=== PATIENT | female | born 1980 | race Caucasian/White ===

== ENCOUNTER 2019-11-08 02:54 | Inpatient (IN) | payer OTHER ==
[2019-11-08] MEDS ORDERED: ceFAZolin 2 GM in SODIUM CHLORIDE 0.9% 100ML 100 ML IV ONE (03:01)
[2019-11-08] MEDS ORDERED: miSOPROStoL 200 MCG TABLET BC PRN (03:01)
[2019-11-08] MEDS ORDERED: SODIUM CHLORIDE FLUSH 0.9% 10 ML SYRINGE IVP PRN (03:01)
[2019-11-08] MEDS ORDERED: TRANEXAMIC ACID 1,000 MG in SODIUM CHLORIDE 0.9% 100ML 100 ML IV PRN (03:01)
[2019-11-08] MEDS ORDERED: OXYTOCIN 10 UNIT/ML VIAL IM PRN (03:01)
[2019-11-08] MEDS ORDERED: OXYTOCIN/SODIUM CHLORIDE 500 ML IV PRN (03:01)
[2019-11-08] MEDS ORDERED: LIDOCAINE-MPF 1% 30 ML VIAL ID PRN (03:01)
[2019-11-08] MEDS ORDERED: CARBOPROST TROMETHAMINE 250 MCG/ML AMP IM PRN (03:01)
[2019-11-08] MEDS ORDERED: METHYLERGONOVINE 0.2 MG/ML VIAL IM PRN (03:01)
[2019-11-08] MEDS ORDERED: fentaNYL 100 MCG/2 ML VIAL IVP ONE (03:12)
[2019-11-08] MEDS ORDERED: ROCURONIUM 50 MG/5 ML VIAL IVP ONE (03:12)
[2019-11-08] MEDS ORDERED: PROPOFOL 200 MG/20 ML VIAL IVP ONE (03:12)
[2019-11-08] MEDS ORDERED: TRANEXAMIC ACID 1,000 MG/10 ML VIAL IV ONE (03:12)
[2019-11-08] MEDS ORDERED: OXYTOCIN 10 UNIT/ML VIAL IV ONE (03:12)
[2019-11-08] MEDS ORDERED: ONDANSETRON 4 MG/2 ML VIAL IVP ONE (03:12)
[2019-11-08] MEDS ORDERED: GLYCOPYRROLATE 1 MG/5 ML VIAL IVP ONE (03:12)
[2019-11-08] MEDS ORDERED: NEOSTIGMINE 1 MG/1 ML 10 ML MDV IVP ONE (03:12)
[2019-11-08 03:19] LABS: BASOPHILS % (AUTO) 0.3 %; EOSINOPHILS # (AUTO) 0.1 10^3/uL (0.0-0.7); EOSINOPHILS % (AUTO) 0.7 %; HGB - HEMOGLOBIN 11.3 g/dL (12.0-16.0); LYMPHOCYTES # (AUTO) 2.8 10^3/uL (1.5-3.5); LYMPHOCYTES % (AUTO) 22.9 %; MEAN CORPUSCULAR HGB CONC 32.8 g/dL (32.0-36.0); MEAN CORPUSCULAR VOLUME 91.2 fL (81.0-99.0); MEAN PLATELET VOLUME 10.1 fL (7.9-10.8); MONOCYTES # (AUTO) 0.8 10^3/uL (0.0-1.0); MONOCYTES % (AUTO) 6.4 %; NEUTROPHILS # (AUTO) 8.3 10^3/uL (1.5-6.6); NEUTROPHILS % (AUTO) 68.6 %; PLT - PLATELET COUNT 242 10^3/uL (130-450); RED BLOOD COUNT 3.77 10^6/uL (4.20-5.40); RED CELL DISTRIBUTION WIDTH 13.1 % (12.0-15.0); WHITE BLOOD COUNT 12.1 x10^3/uL (4.8-10.8)
[2019-11-08 03:32] LABS: ALBUMIN/GLOBULIN RATIO 0.9 (1.0-2.2); BILIRUBIN,TOTAL 0.8 mg/dL (0.2-1.0); CALCIUM 9.2 mg/dL (8.5-10.3); CREATININE 0.5 mg/dL (0.4-1.0); TOTAL PROTEIN 6.2 g/dL (6.7-8.2)
[2019-11-08] MEDS ORDERED: CARBOPROST TROMETHAMINE 250 MCG/ML AMP IM ONE ×2 (03:32→03:34)
[2019-11-08] MEDS ORDERED: CEFAZOLIN SODIUM IN 0.9 % NACL 2 GM/100 ML BAG IV ONE (03:50)
[2019-11-08] MEDS ORDERED: LACTATED RINGERS 1,000 ML IV SCH ×2 (04:00→05:00)
[2019-11-08] MEDS ORDERED: WITCH HAZEL/GLYCERIN 1 PAD TOP PRN (04:32)
[2019-11-08] MEDS ORDERED: ONDANSETRON 4 MG/2 ML VIAL IVP PRN ×2 (04:32→04:40)
[2019-11-08] MEDS ORDERED: HYDROCORTISONE 1% CREAM 28 GM TUBE PR PRN (04:32)
[2019-11-08] MEDS ORDERED: diphenhydrAMINE INJ 50 MG/ML VIAL IVP PRN (04:32)
--- NOTE | 2019-11-08 04:39 | OPERATIVE REPORT ---
Operative Report - General Planned Procedure: DOS 11/08/19 Preop: vag bleeding at term, prior x2 Postop: placental abruption Surg: repeat MD: Tima Assist: Curly EBL: 800cc + 100cc expressed UOP; 225 IVF: 1400 Comp: none Dispo: PACU, stable Specimens: placenta, cord blood
[2019-11-08] MEDS ORDERED: NALOXONE 0.4 MG/ML VIAL IVP PRN (04:40)
[2019-11-08] MEDS ORDERED: ATROPINE ABBOJECT 1 MG/10 ML SYRINGE IVP PRN (04:40)
[2019-11-08] MEDS ORDERED: ePHEDrine 50 MG/ML VIAL IVP PRN (04:40)
[2019-11-08] MEDS: HYDROmorphone 0.5 MG/0.5 ML SYRINGE ONE ×2 (04:40→04:58)
[2019-11-08] MEDS ORDERED: HYDROmorphone 0.5 MG/0.5 ML SYRINGE IVP PRN (04:40)
[2019-11-08] MEDS ORDERED: MORPHINE 2 MG/ML CARPUJECT IVP PRN ×2 (04:40→05:33)
[2019-11-08] MEDS ORDERED: fentaNYL 100 MCG/2 ML VIAL IVP PRN (04:40)
[2019-11-08] MEDS ORDERED: METOCLOPRAMIDE 10 MG/2 ML VIAL IVP PRN (04:40)
--- NOTE | 2019-11-08 04:44 | ANESTHESIA ---
Pre-Anesthesia VS, & Labs - Diagnosis @38, abruption - Procedure Emegency c/s Vital Signs: Temp Pulse Resp BP Pulse Ox 36.7 C 93 16 143/81 H 100 11/08/19 04:31 11/08/19 04:31 11/08/19 04:31 11/08/19 04:31 11/08/19 04:31 67", 90kg (estimates) - NPO Other Last Food Intake: 2100 - Is Patient ?: Yes, Waiver signed (crash c/s due to bleeding, FHT concerns) - Lab Results Current Lab Results: Laboratory Tests 11/08/19 03:10: Blood Type Recheck A POSITIVE 11/08/19 03:00: Sodium 134 L, Potassium 3.7, Chloride 99 L, Carbon Dioxide 21, Anion Gap 14.0 H, BUN 8, Creatinine 0.5, Estimated GFR (MDRD) 139, Glucose 99, Calcium 9.2, Total Bilirubin 0.8, AST 20, ALT 14, Alkaline Phosphatase 88, Total Protein 6.2 L, Albumin 3.0 L, Globulin 3.2, Albumin/Globulin Ratio 0.9 L 11/08/19 03:00: Blood Type A POSITIVE, Antibody Screen NEGATIVE, Crossmatch IS Only See Detail 11/08/19 03:00: WBC 12.1 H, RBC 3.77 L, Hgb 11.3 L, Hct 34.4 L, MCV 91.2, MCH 30.0, MCHC 32.8, RDW 13.1, Plt Count 242, MPV 10.1, Neut # (Auto) 8.3 H, Lymph # (Auto) 2.8, Will # (Auto) 0.8, Eos # (Auto) 0.1, Baso # (Auto) 0.0, Absolute Nucleated RBC 0.02, Nucleated RBC % 0.2 Fish Bones: 11/08/19 03:00 11/08/19 03:00 Home Medications and Allergies Active Medications Carboprost Tromethamine (Hemabate) 250 mcg IM Q15M PRN PRN Reason: Step 4: Hemorrhage protocol Stop: 11/13/19 03:01 Oxytocin/Sodium Chloride (Pitocin/Sodium Chloride) 500 mls @ 999 mls/hr IV PRN PRN; Protocol PRN Reason: POST- HEMORR PREVENTION Stop: 11/13/19 03:01 Tranexamic Acid 1,000 mg/ (Sodium Chloride) 110 mls @ 660 mls/hr IV .ONCE PRN PRN Reason: EBL >1200mL and within 3hr Stop: 11/13/19 03:01 Lactated Ringer's (Lr) 1,000 mls @ 150 mls/hr IV .Q6H40M [facility] Lidocaine HCl (Xylocaine-Mpf 1% Vial) 30 ml ID .ONCE PRN PRN Reason: PERINEAL REPAIR Stop: 11/13/19 03:01 Methylergonovine Maleate (Methergine Inj) 0.2 mg IM .ONCE PRN PRN Reason: Step 2: Hemorrhage protocol Stop: 11/13/19 03:01 Misoprostol (Cytotec) 800 mcg BC .ONCE PRN PRN Reason: Step 3: Hemorrhage protocol Stop: 11/13/19 03:01 Oxytocin (Pitocin) 10 unit IM .ONCE PRN PRN Reason: Step one: If no IV access Stop: 11/13/19 03:01 Sodium Chloride (Normal Saline Flush 0.9%) 10 ml IVP PRN PRN PRN Reason: NEEDED PER PROVIDER ORDERS Sodium Chloride (Normal Saline Flush 0.9%) 10 ml IVP 0100,0900,1700 [facility] Allergies/Adverse Reactions: Allergies Allergy/AdvReac Type Severity Reaction Status Date / Time No Known Drug Allergies Allergy Verified 11/08/19 03:24 Plan Anesthesia Type: General Consent for Procedure(s) Verified and Reviewed: Yes Code Status: Attempt Resuscitation ASA classification: 2-Mild systemic disease (ASA 2E - crash c/s under GETA for abruption) Is this case an emergency?: Yes (emergency c/s under GETA for copious vaginal bleeding, possible abruption)
--- NOTE | 2019-11-08 04:45 | HISTORY & PHYSICAL EXAMINATION ---
History of Present Illness - History of Present Illness HPI Comment/Other: See dictation. Hemorrhage at term c/w abruption, emergency . Meds/Allgy - Allergies Allergies/Adverse Reactions: Allergies Allergy/AdvReac Type Severity Reaction Status Date / Time No Known Drug Allergies Allergy Verified 11/08/19 03:24 Conclusion/Plan - Lab Results Fish Bones: 11/08/19 03:00 11/08/19 03:00
[2019-11-08] MEDS ORDERED: ONDANSETRON 4 MG/2 ML VIAL ONE (04:47)
[2019-11-08] MEDS ORDERED: HYDROmorphone 0.5 MG/0.5 ML SYRINGE ONE (04:47)
[2019-11-08] MEDS ORDERED: LACTATED RINGERS 1,000 ML IV ONE ×2 (04:57→04:58)
[2019-11-08] MEDS: KETOROLAC 30 MG/ML VIAL IVP SCH ×3 (05:26→17:42)
[2019-11-08] MEDS: SODIUM CHLORIDE FLUSH 0.9% 10 ML SYRINGE IVP PRN ×3 (05:30→17:42)
[2019-11-08] MEDS ORDERED: ACETAMINOPHEN 1,000 MG/100 ML 100 ML IV ONE (05:33)
[2019-11-08] MEDS ORDERED: SODIUM CHLORIDE FLUSH 0.9% 10 ML SYRINGE IVP SCH (09:00)
--- NOTE | 2019-11-08 09:33 | HISTORY & PHYSICAL EXAMINATION ---
DATE OF SERVICE: 11/08/2019 Physician: Emily Wei MD CHIEF COMPLAINT: Vaginal bleeding. HISTORY OF PRESENT ILLNESS: Patient woke from sleep feeling wet; she went to the bathroom where she discovered that it was blood. She had free flow of blood over the toilet that sounded like urination. She is a patient of , and she had been planning a TOLAC. She was told by them to come to the nearest hospital. She had a pad placed on her way over. She is not feeling contractions. Normal movement. No rupture of membranes. REVIEW OF SYSTEMS: No fevers. PAST MEDICAL HISTORY: Negative. PAST SURGICAL HISTORY: x2 and appendectomy. OBSTETRICAL HISTORY: Due date is 11/19/2019, per patient. There are no records available. She has not gotten her care here. She reports an uncomplicated and plans for TOLAC. MEDICATIONS: vitamins. ALLERGIES: NO KNOWN DRUG ALLERGIES. SOCIAL HISTORY: No tobacco, alcohol, or drug use. Patient is a [place] family. OBJECTIVE: Patient is alert and in no apparent distress. NST was category 1. [place] was about every 3-4 minutes. She had a saturated pad that she arrived with. While in triage initially her bleeding was stable, and then she began hemorrhaging again. IMPRESSION AND PLAN: A 39-year-old P3 at 38 weeks with likely placental abruption with her significant amount of hemorrhaging. No records are available, but the patient does report not having previa and she had been cleared for vaginal delivery. She was counseled for emergency repeat , which she was not happy about but did consent to. We briefly discussed the risks of bleeding, trauma to local organs, infection, and anesthesia complications, as well as problems with future pregnancies due to scar tissue on the uterus. The patient was explicitly asked if she was planning a tubal ligation, and she said no. This H and P was documented after her section. She received in triage 2 large bore IVs. She was typed and crossed. We baljinder a CBC and CMP, and she was quickly brought to the operating room. TD: 11/08/2019 04:46 CED
[2019-11-08 10:11] LABS: BASOPHILS # (AUTO) 0.1 10^3/uL (0.0-0.1); BASOPHILS % (AUTO) 0.3 %; LYMPHOCYTES # (AUTO) 1.4 10^3/uL (1.5-3.5); LYMPHOCYTES % (AUTO) 6.2 %; MEAN CORPUSCULAR HEMOGLOBIN 30.1 pg (27.0-31.0); MEAN CORPUSCULAR HGB CONC 32.5 g/dL (32.0-36.0); MEAN CORPUSCULAR VOLUME 92.6 fL (81.0-99.0); MEAN PLATELET VOLUME 9.9 fL (7.9-10.8); MONOCYTES % (AUTO) 4.5 %; NEUTROPHILS # (AUTO) 19.8 10^3/uL (1.5-6.6); PLT - PLATELET COUNT 210 10^3/uL (130-450); RED BLOOD COUNT 2.99 10^6/uL (4.20-5.40); RED CELL DISTRIBUTION WIDTH 13.1 % (12.0-15.0); WHITE BLOOD COUNT 22.6 x10^3/uL (4.8-10.8)
[2019-11-08 10:34] LABS: RBC MORPHOLOGY (MULTIPLE) 2+ ANISOCYTOSIS (NORMAL)
[2019-11-08] MEDS: DOCUSATE SODIUM 100 MG CAPSULE PO SCH ×2 (10:55→20:53)
[2019-11-08] MEDS: SIMETHICONE CHEW 80 MG TABLET PO SCH ×4 (10:55→20:54)
[2019-11-08] MEDS: SODIUM CHLORIDE FLUSH 0.9% 10 ML SYRINGE IVP SCH ×2 (11:59→17:42)
[2019-11-08] MEDS: ACETAMINOPHEN 500 MG TABLET PO SCH ×2 (14:30→17:42)
--- NOTE | 2019-11-08 14:40 | ANESTHESIA POST OP EVALUATION ---
Anesthesia Post Eval - Post Anesthesia Eval Vitals: Last Vital Signs Temp 37.2 C 11/08/19 12:24 Pulse 73 11/08/19 12:24 Resp 18 11/08/19 12:24 BP 114/60 11/08/19 12:24 Pulse Ox 100 11/08/19 12:24 CV Function Including HR & BP: positive: Stable Pain Control: positive: Satisfactory Nausea & Vomiting: positive: Negative Mental Status: positive: Baseline, Patient Participates Respiratory Status: Airway Patent Hydration Status: Satisfactory Anesthesia Complications: positive: None
--- NOTE | 2019-11-08 16:05 | OPERATIVE REPORT ---
DATE OF SERVICE: 11/08/2019 Physician: Emily Wei MD PREOPERATIVE DIAGNOSES: 1. Vaginal hemorrhage at term. 2. Prior prior section x2. POSTOPERATIVE DIAGNOSIS: Placental abruption. PROCEDURE PERFORMED: Repeat section. SURGEON: Emily Wei MD DIRECTOR OF RETENTION: Curly. ANESTHESIA: General. ESTIMATED BLOOD LOSS: 800 mL intraoperatively and then 100 mL expressed after the surgery. URINE OUTPUT: 225 mL clear. IV FLUIDS: 1400 mL. COUNTS: Correct x2. COMPLICATIONS: None apparent. DISPOSITION: Stable to the recovery room. PROPHYLAXIS: SCDs to bilateral lower extremities. The patient had Ancef given after delivery of the infant. FINDINGS 1. Upon entry to the uterus, a large volume of blood and clot extruded before the baby's head did. 2. Normal-appearing uterus, ovaries, and fallopian tubes. 3. Liveborn female, Apgars 9 at one minute and 9 at five minutes. Weight is pending. SPECIMENS: Placenta and cord blood to the lab. DESCRIPTION OF PROCEDURE: The patient was brought to the operating room, where we were evaluating he r for either spinal versus general anesthesia. She was initially sat up for a spinal, but she was ac tively bleeding while sitting up and so the decision was made to proceed with general anesthesia. Th e patient was withdrawing from the measures that we needed to do in order to get her asleep. She wit hdrew from placement of a Chung catheter, as well as placement of the leg straps. She was crying out occasionally. She was advised that these measures were required for the safety of her baby. Her Fo brandt catheter was placed. She was prepped with Betadine rather than chlorhexidine due to the emergent surgery. She was draped in the usual sterile fashion. She was induced with general anesthesia and then immediately a scalpel was used to make a skin incision in the area of the patient's prior scars. This was carried down to the fascia, which was incised with a scalpel and then spread bluntly. The incision was spread bluntly, but the rectus on the superior aspect required dissection with Mayos to get it off of the fascia. The peritoneum was bluntly entered. Room was deemed to be adequate. A b ladder retractor was placed. A scalpel was used to make a transverse incision in the lower uterine s egment. A large amount of fresh blood and blood clot was extruded from the incision prior to deliver y of the baby. The surgeon's hand was placed in the uterine cavity and the head was elevated. The baby was delivered with the assistance of fundal pressure. There was no nuchal cord and the maria victoria ulders were easily delivered. The umbilical cord was immediately clamped x2 and cut. The baby was h anded to the scientific informatics analyst in waiting. The placenta was removed with external uterine massage. It de tached quite easily. The uterine cavity was curetted with a dry lap and there were adherent membrane s that were removed. The uterus was very boggy and there was placental site bleeding that was brisk. Pressure was applied, and the patient received Pitocin, as well as a dose of Hemabate. This result ed in excellent uterine tone and normalization of placental site bleeding. The uterine incision was closed with a running layer of 0 Vicryl. A second imbricating layer was performed. The cul-de-sac wa s evaluated and clot was swept with a damp lap. The uterus was returned to the abdominal cavity. [facility] gutters were examined and packed with damp laps that were removed in order to remove blood and clot . Inspection of the uterine incision, rectus and fascia revealed good hemostasis. The peritoneum in feriorly was closed with a [id number] suture of Vicryl. The fascia was closed with an 0 Vicryl starting laterally on each side and meeting medially. The subcutaneous tissues were reapproximated w ith interrupted sutures of 2-0 Vicryl. The skin was closed with a running subcuticular suture of 4-0 Monocryl. Dermabond was applied as a dressing. Fundal massage yielded 100 mL of blood and clot. O nce this was extruded, there was no further ongoing bleeding visualized. The patient was awakened in the operating room. The blood was washed from her body. She went to the PACU in stable condition. Notably, the spouse of the patient refused to leave her side and followed us to the operating room, w here he again refused to leave when I asked him to. Due to the emergent setting, we were unable to m anage the presence of the father of the baby. He did walk about the room. He took his mask off whil e holding the baby. He also was in anesthesia's area. The journeyman powerhouse operator will be notified. [facility] clinical situation is now nonemergent, hopefully we will not have any further issues. TD: 11/08/2019 04:59
[2019-11-08] MEDS: oxyCODONE 5 MG TABLET PO PRN (20:53)
[2019-11-09] MEDS: ACETAMINOPHEN 500 MG TABLET PO SCH ×3 (00:23→17:36)
[2019-11-09] MEDS: KETOROLAC 30 MG/ML VIAL IVP SCH (00:24)
[2019-11-09] MEDS: SODIUM CHLORIDE FLUSH 0.9% 10 ML SYRINGE IVP SCH ×3 (00:24→17:37)
[2019-11-09] MEDS: oxyCODONE 5 MG TABLET PO PRN ×2 (04:18→21:23)
[2019-11-09] MEDS: DOCUSATE SODIUM 100 MG CAPSULE PO SCH ×2 (08:56→21:23)
[2019-11-09] MEDS: SIMETHICONE CHEW 80 MG TABLET PO SCH ×3 (08:56→17:37)
[2019-11-09 10:34] LABS: BASOPHILS % (AUTO) 0.2 %; EOSINOPHILS # (AUTO) 0.1 10^3/uL (0.0-0.7); EOSINOPHILS % (AUTO) 0.3 %; LYMPHOCYTES # (AUTO) 1.5 10^3/uL (1.5-3.5); LYMPHOCYTES % (AUTO) 9.9 %; MEAN CORPUSCULAR HEMOGLOBIN 30.2 pg (27.0-31.0); MEAN CORPUSCULAR VOLUME 94.3 fL (81.0-99.0); MEAN PLATELET VOLUME 9.9 fL (7.9-10.8); MONOCYTES # (AUTO) 0.7 10^3/uL (0.0-1.0); MONOCYTES % (AUTO) 4.7 %; NEUTROPHILS # (AUTO) 12.7 10^3/uL (1.5-6.6); PLT - PLATELET COUNT 199 10^3/uL (130-450); RED BLOOD COUNT 2.65 10^6/uL (4.20-5.40); RED CELL DISTRIBUTION WIDTH 13.3 % (12.0-15.0); WHITE BLOOD COUNT 15.1 x10^3/uL (4.8-10.8)
--- NOTE | 2019-11-09 11:01 | PROVIDER PROGRESS NOTE ---
Subjective - Subjective Subjective: Feeling well, no issues. Eat, ambulate, urinate, breastfeed well. No PENA, CP, SOB, dizziness, faintness, heavy bleeding, or mood problems. AVSS, alert and , NAD. Abd soft, appropriately tender and not distended. Fundus firm, 1cm below umbilicus. Incision c/d/i without erythema. LE without edema. Hct 27-->25 A/P: 39yo P4 POD #1 s/p emergency repeat for placental abruption at term. No anemia sx and HR is normal, young and healthy, does not need tr ansfusion unless clinical picture changes. Discussed abrupton presence, natural hx, anemia presence, need for immediate eval PRN heavy bleeding. Pt understands. She wants BTL and will [place] base [place] to arrange this. Wants to f/u with [facility]. Anticipate d/c tomorrow. Objective - Vital Signs/Intake & Output Vital Signs: Vital Signs x48h Temp Pulse Resp BP Pulse Ox 11/09/19 09:07 98.4 F 78 18 108/44 L 98 11/09/19 04:00 99.0 F 99 16 118/59 L 99 Intake & Output: Intake & Output 11/06/19 11/07/19 11/08/19 11/09/19 23:59 23:59 23:59 23:59 Intake Total 1130 Output Total 2125 500 Balance -995 -500 - Lab Results Fish Bones: 11/09/19 10:20 11/08/19 03:00 Other Labs: Lab Results x24hrs 11/09/19 Range/Units 10:20 WBC 15.1 H (4.8-10.8) x10^3/uL RBC 2.65 L (4.20-5.40) 10^6/uL Hgb 8.0 L (12.0-16.0) g/dL Hct 25.0 L (37.0-47.0) % MCV 94.3 (81.0-99.0) fL MCH 30.2 (27.0-31.0) pg MCHC 32.0 (32.0-36.0) g/dL RDW 13.3 (12.0-15.0) % Plt Count 199 (130-450) 10^3/uL MPV 9.9 (7.9-10.8) fL Neut # (Auto) 12.7 H (1.5-6.6) 10^3/uL Lymph # (Auto) 1.5 (1.5-3.5) 10^3/uL [place] # (Auto) 0.7 (0.0-1.0) 10^3/uL Eos # (Auto) 0.1 (0.0-0.7) 10^3/uL Baso # (Auto) 0.0 (0.0-0.1) 10^3/uL Absolute Nucleated RBC 0.00 x10^3/uL Nucleated RBC % 0.0 /100WBC
[2019-11-09] MEDS: IBUPROFEN 600 MG TABLET PO SCH ×4 (13:05→19:28)
[2019-11-10] MEDS: ACETAMINOPHEN 500 MG TABLET PO SCH ×2 (01:26→03:12)
[2019-11-10] MEDS: IBUPROFEN 600 MG TABLET PO SCH ×3 (01:28→09:55)
[2019-11-10] MEDS ORDERED: SODIUM CHLORIDE 0.9% 100ML 100 ML IV ONE (03:12)
[2019-11-10] MEDS: oxyCODONE 5 MG TABLET PO PRN ×2 (03:13→09:55)
--- NOTE | 2019-11-10 06:58 | Discharge Plan ---
Discharge Plan Problem Reviewed?: Yes Disposition: Home, Self Care Condition: Good Diet: Regular Activity Restrictions: No lifting more than 10# Shower Restrictions: No Driving Restrictions: Yes (not if on oxycodone) No Smoking: If you smoke, Please STOP! Call for help. Follow-up with: Buster Nguyễn MD [Provider Admit Priv/Credential] - 1 Week
--- NOTE | 2019-11-10 08:27 | DISCHARGE SUMMARY ---
Physician: Emily Wei MD DATE OF ADMISSION: 11/08/2019 DATE OF DISCHARGE: 11/10/2019 ADMISSION DIAGNOSES 1. Prior section x2. 2. Intrauterine at term. 3. Vaginal hemorrhage. DISCHARGE DIAGNOSES 1. Prior section x2. 2. Intrauterine at term. 3. Vaginal hemorrhage. 4. Placental abruption. 5. Acute blood loss anemia. PROCEDURE On 11/08/2019, emergency section under general anesthesia. HOSPITAL COURSE The patient was admitted due to her vaginal bleeding. She had been gushing at home and arrived with a saturated pad. By the time of arrival, her bleeding had slowed and we made progres s for section, during this patient began hemorrhaging again and so the decision was made to put her to sleep. The surgery was uncomplicated. There was a clear abruption present. I had asked prior to the surgery explicitly if the patient wanted a tubal and she said no. Then, while she was a sleep her said yes that the patient did want a tubal. We discussed how this was not possible because the patient had explicitly said no, she could have it done should she choose. The patient's postoperative course was complicated by anemia with a hematocrit of 25. She was not sympt omatic for this and her vitals were normal as well, so she did not require transfusion and she will b e sent home on iron. By day #2, she was requesting discharge home. She was eating, ambul ating, urinating, and without difficulties. She had no heavy bleeding or mood changes. Her pain was under good control. DISCHARGE EXAMINATION Afebrile, normal vital signs. Alert and pleasant, in no apparent distress. Abdomen is soft, nontender, nondistended. Fundus firm, nontender, and 1 cm below the umbilicus. Inc ision clean, dry, and intact without erythema or induration. No lower extremity clubbing, cyanosis o r edema. Pertinent OB labs include "A" positive, antibody negative, rubella immune and a normal Pap. The kymberly ent is [place], so she got her Tdap.. DISCHARGE DISPOSITION Home. CONDITION Good. FOLLOWUP: 1. In one week with [facility] for a postop check. 2. [place] [facility] [place]. DISCHARGE MEDICATIONS Oxycodone, ibuprofen and Tylenol p.r.n. pain, iron, and Colace p.r.n. to sof ten stool. TD: 11/10/2019 07:04
[2019-11-10 08:57] VITALS: BP 125/66
[2019-11-10] MEDS: DOCUSATE SODIUM 100 MG CAPSULE PO SCH (09:55)
[2019-11-10] MEDS: SIMETHICONE CHEW 80 MG TABLET PO SCH (09:55)
[2019-11-10] MEDS ORDERED: bisacodyL 5 MG TABLET PO ONE (11:04)
--- NOTE | 2019-11-10 11:51 | Labor Flowsheet ---
Labor Flowsheet Datetime Report Generated by CPN: 11/10/2019 11:51 Datetime: 11/08/2019 03:08 VITAL SIGNS Pulse: 94 SpO2 (%): 100
== END 2019-11-10 10:50 | disposition home or self-care (01) | DRG 787 ==
LOC: WFO 02:54 → FBP 02:55 → WFO 03:00 → FBP 03:01
PROVIDERS: ADMIT Obstetrics & Gynecology; ATTEND Obstetrics & Gynecology
PROC: 10D00Z1 Extraction of Products of Conception, Low, Open Approach (ICD-10-PCS; principal; 2019-11-08 03:15)
DX: O45.93 Premature separation of placenta, unspecified, third trimester (principal); D62 Acute posthemorrhagic anemia; O90.81 Anemia of the puerperium; O34.211 Maternal care for low transverse scar from previous cesarean delivery; Z37.0 Single live birth; Z3A.40 40 weeks gestation of pregnancy
CPT/HCPCS: 36415; 80053; 85025; 86850; 86900; 86901; 86920; 99214; A9270; J0131; J0690; J1170; J7120